=== PATIENT | male | born 1945 | race Caucasian/White ===

== ENCOUNTER 2016-10-03 19:53 | Emergency (ER) | payer MEDICARE ==
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
[~2016-10-03 19:53] MED LIST: CARDIZEM CD PO; LIPITOR PO; LISINOPRIL PO; [UNRECOGNIZED DRUG - REMARK]
== END 2016-10-03 21:26 | disposition short-term general hospital (02) ==
LOC: CED 19:53
DX: S02.40FA Zygomatic fracture, left side, initial encounter for closed fracture (principal); S02.612A Fracture of condylar process of left mandible, initial encounter for closed fracture; S02.32XA Fracture of orbital floor, left side, initial encounter for closed fracture; I10 Essential (primary) hypertension; Z79.899 Other long term (current) drug therapy; Y08.89XA Assault by other specified means, initial encounter; Z23 Encounter for immunization
CPT/HCPCS: 12013; 70450; 70486; 72125; 90471; 90715; 99284

== ENCOUNTER 2016-10-16 10:53 | Emergency (ER) | payer MEDICARE | END 2016-10-16 12:12 | disposition home or self-care (01) | LOC: CED 10:53 | DX: Z48.02 Encounter for removal of sutures (principal); S01.01XD Laceration without foreign body of scalp, subsequent encounter; I10 Essential (primary) hypertension; F17.210 Nicotine dependence, cigarettes, uncomplicated | CPT/HCPCS: 99281 ==